=== PATIENT | male | born 1970 | race Caucasian/White ===

== ENCOUNTER 2016-09-12 06:15 | Day surgery (SDC) | payer BC ==
[2016-09-11 12:40] VITALS: BMI 28.1
--- NOTE | 2016-09-12 07:26 | CP.SDSHP ---
Same Day Surgery H & P - History Proposed Procedure: Left knee manipulation under anesthesia Pre-Op Diagnosis: Left knee arthrofibrosis - Previous Medical/Surgical History Comments: medical clearance on chart Previous Surgical History: L TKR 07/22/2016 - Allergies Allergies: Allergies No Known Allergies Allergy (Verified 09/11/16 14:29) - Physical Exam Vital Signs: Vital Signs 09/12/16 06:38 Temperature 97.7 F Pulse Rate 90 Respiratory 18 Rate Blood Pressure 112/76 O2 Sat by Pulse 97 Oximetry Mental Status: Alert & Oriented x3 Heart: WNL Lungs: WNL GI: WNL - {Optional Preform as Required} Ortho: Other (5-40) - Impression Impression: Left knee arthrofibrosis s/p TKR for manipulation under anesthesia Short Stay Discharge - Short Stay Discharge 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 Disposition: HOME/ ROUTINE Past Patient History - Infectious Disease Hx of Infectious Diseases: None - Tetanus Immunizations Tetanus Immunization: Unknown - Past Medical History & Family History Past Medical History?: Yes - Past Social History Smoking Status: Former Smoker - CARDIAC Hx Cardiac Disorders: No - PULMONARY Hx Respiratory Disorders: No - NEUROLOGICAL Hx Neurological Disorder: No - HEENT Hx HEENT Problems: No - RENAL Hx Chronic Kidney Disease: No - ENDOCRINE/METABOLIC Hx Endocrine Disorders: No - HEMATOLOGICAL/ONCOLOGICAL Hx Blood Disorders: No - INTEGUMENTARY Hx Dermatological Problems: No - MUSCULOSKELETAL/RHEUMATOLOGICAL Hx Musculoskeletal Disorders: Yes Hx Osteoarthritis: Yes - GASTROINTESTINAL Hx Gastrointestinal Disorders: No - GENITOURINARY/GYNECOLOGICAL Hx Genitourinary Disorders: No - PSYCHIATRIC Hx Psychophysiologic Disorder: No - SURGICAL HISTORY Hx Surgeries: Yes Hx Arthroscopy: Yes (LEFT KNEE) Hx Herniorrhaphy: Yes Hx Joint Replacement: Yes (left knee replacement) Hx Musculoskeletal Surgery: Yes (L ACL) Hx Orthopedic Surgery: Yes (R ankle) - ANESTHESIA Hx Anesthesia: Yes Hx Anesthesia Reactions: Yes (vomiting) Hx Malignant Hyperthermia: No Has any member of the family had a problem w/ anesthesia?: No
[2016-09-12] MEDS ORDERED: MethylPREDNISolone Depo 40 mg/ml Inj ONE (07:34)
[2016-09-12] MEDS ORDERED: Bupivacaine HCl 0.5% PF (10 ml) Inj ONE ×2 (07:34→07:35)
[2016-09-12] MEDS ORDERED: Propofol 10 mg/ml Inj (20 ML) ONE (07:52)
[2016-09-12] MEDS ORDERED: Midazolam 2 MG/2 ML VIAL ONE ×2 (07:52→09:11)
[2016-09-12] MEDS ORDERED: HYDROmorphone 0.5 mg/0.5 ml ISec IVP PRN (08:08)
--- NOTE | 2016-09-12 08:24 | PCM.SURG1 ---
Surgeon's Initial Post Op Note - Surgeon's Notes Surgeon: Ngoc Snell MD Diaper Machine Tender: Berto Millard PA-C Type of Anesthesia: IV Sedation Anesthesia Administered By: Dr. Shaw Pre-Operative Diagnosis: Left knee arthrofibrosis Operative Findings: intraop 0-130 Post-Operative Diagnosis: same Operation Performed: left knee manipulation under anesthesia Specimen/Specimens Removed: none Estimated Blood Loss: EBL {In ML}: 0 Blood Products Given: N/A Drains Used: No Drains Post-Op Condition: Fair Date of Surgery/Procedure: 09/12/16 Time of Surgery/Procedure: 10:38
[2016-09-12] MEDS ORDERED: Sodium Chloride 0.9% 1,000 ML IV ONE ×2 (08:30)
--- NOTE | 2016-09-12 09:02 | OP ---
PROCEDURE DATE: 09/12/2016 PREOPERATIVE DIAGNOSIS: Left knee arthrofibrosis status post left total knee replacement. POSTOPERATIVE DIAGNOSIS: Left knee arthrofibrosis status post left total knee replacement. PROCEDURE: Left knee manipulation under anesthesia. SURGEON: Jeremy Snell MD ANESTHESIA: Sedation. COMPLICATIONS: None. ESTIMATED BLOOD LOSS: 0. INDICATIONS FOR PROCEDURE: This is a 45-year-old gentleman who approximately 8 weeks ago underwent a left total knee replacement. Postoperatively, his rehabilitation was delayed and subsequently the p atient developed a stiff knee. The patient was noted to have range of motion from about -10 degrees to about 75 degrees of flexion. Recommendations were for manipulation under anesthesia. The risks, benefits, and alternatives of procedure were discussed with the patient including periprosthetic frac ture, and informed consent was obtained. OPERATIVE PROCEDURE: After surgical site was found and verified in preoperative holding area, the pa tient was taken to the operating room and placed supine on the operating table. After administration of sedation, a manipulation under anesthesia was performed. First, by applying steady pressure, the knee was flexed. When this was done, approximately 120 degrees of flexion was able to be achieved. In a similar fashion, with the knee extended, constant downward pressure was applied until full exte nsion had been achieved. This was repeated a couple of times. Once this was done, the knee was inje cted with a total of 10 mL of 0.5% Marcaine. The patient tolerated procedure well. The patient was awakened and taken to recovery room in stable condition. Jeremy Snell MD cc: [id number] TT: 09/12/2016 09:02:00 nh
[2016-09-12] MEDS ORDERED: Bupivacaine 0.5% Inj(30mL) ONE (09:03)
[2016-09-12] MEDS ORDERED: Bupivacaine HCl 0.25% PF (10 ml) Inj ONE (09:03)
[2016-09-12] MEDS ORDERED: Midazolam 2 MG/2 ML VIAL IVP ONE (09:15)
--- NOTE | 2016-09-12 09:30 | RAD ---
PROCEDURE: Left Knee Radiographs. HISTORY: Pain. COMPARISON: None. FINDINGS: BONES: Status post total knee replacement. No osseous fracture. No evidence of prosthesis loosening. JOINTS: As above JOINT EFFUSION: None. OTHER FINDINGS: None. IMPRESSION: Left total knee replacement.
[2016-09-12] MEDS ORDERED: Lactated Ringer's 1,000 ML IV ONE (10:00)
[2016-09-12] MEDS ORDERED: Oxycodone/Acetaminophen 5/325 mg Tab PO PRN (10:15)
[2016-09-12 10:53] VITALS: RESP 13; TEMP 98.2; O2SAT 100
[2016-09-12 11:21] VITALS: BP 123/71; PULSE 68
--- NOTE | 2016-09-12 13:03 | PCM.ANESB3 ---
Femoral Nerve Block - Femoral Nerve Block Date of Procedure: 09/12/16 Procedure Performed: Femoral Nerve Block Left - Procedure Femoral Nerve Block: The procedure was explained to the patient that it is for the post-operative pain management. Consent was obtained pre operatively after a thorough discussion with the patient regarding the benefits and possible complications of local anesthetic block of the femoral nerve at the inguinal crease area. The patient was brought to the operating room and standard monitors were applied. Time-out was held with the PACU nurse to confirm the correct surgery and the appropriate block. After applying oxygen by nasal cannula and administering IV Sedation, patient was placed in supine position with fully extended lower extremities and the left_ groin exposed. The femoral artery was then carefully palpated. The ultrasound transducer was then applied to this area in the transverse plane and the saphenous nerve was visualized lateral to the femoral artery and underneath the sartorius muscle. After thorough identification, the adductor area was prepped with chloraprep At this point, a #22 gauge Stimuplex 2-inch needle was inserted immediately lateral to the femoral artery pulse at the inguinal crease and advanced perpendicularly. The needle was inserted to the ultrasound transducer in-plane towards the saphenous nerve in a [id number] direction. Needle advancement was performed carefully under direct ultrasound visualization. Nerve stimulator was used and twitch of the quadriceps muscle was obtained at current of MA. After negative aspiration, 5 cc of _0.5_% __bupivicaine_ was injected and this was followed with ____15 cc of _0.5_% __bupivicaine. Under ultrasound guidance the local anesthetics were observed spreading below sartorius muscle and around the saphenous nerve. The needle was removed intact and sterile dressing was applied. The patient had stable vital signs, was conscious and in no apparent distress. The patient tolerated the saphenous nerve block well with stable vital signs, no paresthesias, no complaints.
== END 2016-09-12 11:10 | disposition home or self-care (01) ==
LOC: C.SDS 06:15
PROVIDERS: ATTEND Orthopaedic Surgery
DX: M24.662 Ankylosis, left knee (principal); M25.562 Pain in left knee; Z96.652 Presence of left artificial knee joint
CPT/HCPCS: 27570; 73560; J1170; J2250; J2704; J3010; J7040; J7120